=== PATIENT | male | born 2005 | race Caucasian/White ===

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

== ENCOUNTER 2024-08-29 13:31 | Outpatient (CLI) | payer BC, SELFPAY ==
[2024-08-29 11:04] LABS: Hematocrit 43.5 % (42.0-52.0); Hemoglobin 14.8 g/dL (14.0-18.0); Mean Corpuscular Hemoglobin 27.4 pg (26-34); Mean Corpuscular Volume 80.6 fl (80-100); Mean Platelet Volume 9.7 fl (7.4-10.4); Platelet Count Result 349 k/mm3 (150-375); Red Cell Distribution Width 12.3 % (11.5-14.5); White Blood Count 13.7 K/mm3 (4.5-10.0)
[2024-08-29 11:34] LABS: Alanine Aminotransferase 17 U/L (6-50); Albumin Level 4.8 g/dL (3.7-5.6); Alkaline Phosphatase 75 U/L (58-237); Anion Gap 12 mmol/L (4-12); Aspartate Amino Transferase 24 U/L (17-59); Bilirubin,Total 0.7 mg/dL (0.2-1.3); Blood Urea Nitrogen 12 mg/dL (8-21); CRP 12.1 mg/dL (<1.0); Calcium 9.7 mg/dL (8.9-10.7); Carbon Dioxide 27 mmol/L (22-30); Chloride 101 mmol/L (98-107); Estimated Glomerular Filt Rate > 60; Glucose 104 mg/dL (65-110); Sodium 140 mmol/L (134-143)
[2024-08-29 11:35] LABS: Erythrocyte Sedimentation Rate 17 mm/hr (0-20)
[2024-08-29 12:06] LABS: Thyroid Stimulating Hormone Reflex 0.582 uIU/mL (0.465-4.68)
[2024-08-29 15:25] LABS: Toxigenic C. Diff NEGATIVE (NEGATIVE)
[2024-09-03 16:43] LABS: Immunoglobulin A 206 mg/dL (47-310); TTG IGA AB <1.0 U/mL
== END 2024-08-29 13:32 | disposition home or self-care (01) ==
LOC: ANHLAB 13:32
PROVIDERS: Visit Provider Nurse Practitioner
DX: R10.9 Unspecified abdominal pain (principal); R19.7 Diarrhea, unspecified; K92.0 Hematemesis; K62.89 Other specified diseases of anus and rectum; R63.4 Abnormal weight loss; R53.83 Other fatigue; R13.10 Dysphagia, unspecified; F41.9 Anxiety disorder, unspecified
CPT/HCPCS: 36415; 80053; 82653; 82784; 83993; 84443; 85027; 85652; 86140; 86364; 87045; 87269; 87427; 87449; 87493

== ENCOUNTER 2024-09-12 03:30 | Day surgery (SDC) | payer BC, SELFPAY ==
[2024-09-05 08:42] VITALS: BMI 24.4
--- OUTSIDE RECORDS SUMMARY | 2024-09-12 03:38 | XMS_ITS | Referral Summary ---
Author Organization [facility] Address [address] [place] [address] Care Team Providers Care Packager Name Role Phone Beata Walters MD Primary Care Provider [phone] Source Comments [facility],non-owned Affiliates and Associated Physician Practices is amultiple site organization consisting of ambulatory clinics and hospital sitesin [place], [place], [place] and [place]. This disclosure is being madepursuant to the Care Everywhere program and may not contain all information available regarding this patient. Last updated 18.[facility] Allergies No known active allergies Medications * Be aware that medications may not be up to date on this document. Alwaysverify current medications with the patient. Medication Sig Dispensed Refills Start Date End Date Status dicyclomine (BENTYL) 10 MG capsule Take 1 Cap by mouth 2 times daily 60 Cap 5 04/29/2015 Active minocycline (Minocin) 100 MG capsule GIVE 1 CAPSULE BY MOUTH ONCE DAILY 03/03/2022 Active omeprazole (PriLOSEC) 40 MG capsule Take 1 (one) capsule by mouth once daily 30 capsule 2 04/22/2022 Active Active Problems Problem Noted Date Diagnosed Date Abdominal pain, generalized 04/22/2015 Frequent bowel movements 04/22/2015 Social History Tobacco Use Types Packs/Day Years Used Date Smoking Tobacco: Passive Smo ke Exposure - Never Smoker Sex and Gender Information Value Date Recorded Sex Assigned at Not on file Gender Identity Not on file Sexual Orientation Not on file Last Filed Vital Signs Vital Sign Reading Time Taken Comments Blood Pressure 104/62 04/16/2022 2:59 PM CDT Pulse 120 05/06/2011 7:23 PM CDT Temperature 38.1 ??C (100.6 ??F) 05/06/2011 7:23 PM C DT Respiratory Rate 20 05/06/2011 7:23 PM CDT Oxygen Saturation - - Inhaled Oxygen Concentration - - Weight 79.6 kg (175 lb 7.8 oz) 04/16/2022 2:59 P M CDT Height 174.1 cm (5' 8.54 ) 04/16/2022 2:59 PM CD T Body Mass Index 26.26 04/16/2022 2:59 PM CDT Body Mass Index Percentile 89.39% 04/16/2022 2:5 9 PM CDT Growth Chart: [facility] (Boys, 2-2 0 Years) Plan of Treatment Not on file Care Teams Packager Relationship Specialty Start Date End Date Beata Walters MD PCP - General 05/06/11
--- OUTSIDE RECORDS SUMMARY | 2024-09-12 03:38 | XMS_ITS | Encounter Summary ---
Author Organization [facility] Address [address] [place] [address] Care Team Providers Care Wharf Builder Name Role Phone Beata Walters MD Primary Care Provider [phone] Reason for Visit * Reason Onset Date Comments Procedure 04/21/2022 Encounter Details Date Type Department Care Team (Late st Contact Info) Description 04/21/2022 Telephone [facility] - [address] [place] [address] Sharona Rodas farm reporter Social History Tobacco Use Types Packs/Day Years Used Date Smoking Tobacco: Passive Smo ke Exposure - Never Smoker Sex and Gender Information Value Date Recorded Sex Assigned at Not on file Gender Identity Not on file Sexual Orientation Not on file COVID-19 Exposure Response Date Recorded In the last 10 days, have yo u been in contact with someone who was confirmed or suspected to have Coronavirus/COVID-19? No / Unsure 04/16/2022 2:52 PM CDT documented as of this encounter Miscellaneous Notes * Telephone Encounter - Patti Caballero - 05/12/2022 4:28 PM CDT Left two messages on both numbers listed to call office and schedule scope * Telephone Encounter - Sharona Rodas RN - 05/06/2022 10:17 AM CDT Left message with Shabbir-maw to ask if the stool sample has been obtained / delivered to the lab yet? Please call us back , as we also need to schedule Jesus for scopes * Telephone Encounter - Sharona Rodas RN - 05/05/2022 9:25 AM CDT Spoke with Father who is not sure about the stool sample-- he will call Grandmother and see if stool sample had been sent in yet. * Telephone Encounter - Patti Caballero - 04/29/2022 9:52 AM CDT Left vm for family to call back and schedule EGD w/Dr. Alfonso * Telephone Encounter - Sharona Rodas RN - 04/28/2022 8:33 AM CDT Spoke with the mother who reports no stool specimens have been turned in Yet. Jesus is proving to be difficult in obtaining stool specimens. Routing to Admin for EGD * Telephone Encounter - Sharona Rodas RN - 04/23/2022 8:09 AM CDT Called mother and let her know the Omeprazole RX was sent to their Pharmacy Mother ask about lab results-- All look generally within normal limits-- of course we need for Dr. Alfonso To see and give his interpretation of lab results. Still needs all the stool studies completed. Just found out which lab their Insurance will approve.Needs stool study Orders sent to [email or web address] in [place]. [facility] fax # [phone] Stool study orders have been faxed * Telephone Encounter - Sharona Rodas RN - 04/21/2022 1:56 PM CDT Beth Payan at # [phone] called because. 1.) Dr. Tanja Rondon Is not a recognized Physician with the [place] Medicaid System 2.) They will not approve the Nexium, But will approve Omeprazole Could we please ask for different prescription for Omeprazole? With a different doctor's name? documented in this encounter Plan of Treatment Not on file documented as of this encounter Visit Diagnoses Not on filedocumented in this encounter Care Teams Wharf Builder Relationship Specialty Start Date End Date Beata Walters MD PCP - General 05/06/11 documented as of this encounter
--- OUTSIDE RECORDS SUMMARY | 2024-09-12 03:38 | XMS_ITS | Clinical Summary ---
Author Organization [facility] Address [address] [place] [address] Care Team Providers Care Radiology Technologist Name Role Phone Beata Walters MD Primary Care Provider [phone] Source Comments [facility],non-owned Affiliates and Associated Physician Practices is amultiple site organization consisting of ambulatory clinics and hospital sitesin [place], [place], [place] and [place]. This disclosure is being madepursuant to the Care Everywhere program and may not contain all information available regarding this patient. Last updated 18.[facility] Allergies No known active allergies Medications [...] 04/16/2022 2:5 9 PM CDT Growth Chart: [facility] (Boys, 2-2 0 Years) Plan of Treatment Health Maintenance Due Date Last Done Comments HIV SCREENING 10/30/2019 HPV VACCINE (1 - Male 3-dose series) 10/30/2019 MENINGOCOCCAL (Group B) VACC INE (1 of 2 - Standard) 2020 HEPATITIS C SCREENING 10/25/2022 DTAP/TDAP/TD VACCINES (1 - Tdap) 10/30/2023 HEPATITIS B VACCINE (1 of 3 - 19+ 3-dose series) 10/30/2023 COVID-19 VACCINE (1 - 2023-2 5 season) 2024 INFLUENZA VACCINE (#1) 2024 DEPRESSION SCREENING 08/15/2024 ZOSTER VACCINE (1 of 2) 2054 HIB VACCINE Aged Out No longer eligi ble based on patient's age to complete this topic MENINGOCOCCAL VACCINE Aged Out No arthur keyon eligible based on patient's age to complete this topic PNEUMOCOCCAL VACCINE Aged Out No long er eligible based on patient's age to complete this topic Care Teams Radiology Technologist Relationship Specialty Start Date End Date Beata Walters MD PCP - General 05/06/11
--- OUTSIDE RECORDS SUMMARY | 2024-09-12 03:38 | XMS_ITS | Patient Health Summary ---
Author Organization [facility] Address [address] [place] [address] Care Team Providers Care Copy Worker Name Role Phone Beata Walters MD Primary Care Provider [phone] Note from [facility],non-owned Affiliates and Associated Physician Practices is amultiple site organization consisting of ambulatory clinics and hospital sitesin [place], [place], [place] and [place]. This disclosure is being madepursuant to the Care Everywhere program and may not contain all information available regarding this patient. Last updated 18.[facility] Allergies No known active allergies Medications * Be aware that medications may not be up to date on this document. Alwaysverify current medications with the patient. * dicyclomine (BENTYL) 10 MG capsule(Started 04/29/2015) Take 1 Cap by mouth 2 times daily 5 refills left * minocycline (Minocin) 100 MG capsule(Started 03/03/2022) GIVE 1 CAPSULE BY MOUTH ONCE DAILY * omeprazole (PriLOSEC) 40 MG capsule(Started 04/22/2022) Take 1 (one) capsule by mouth once daily 2 refills by 04/22/2023 Active Problems Problem Noted Date Diagnosed Date [...] 04/16/2022 2:5 9 PM CDT Growth Chart: [facility] (Boys, 2-2 0 Years) Procedures * DIFFERENTIAL MANUAL(Performed 04/16/2022) Performed for Abdominal pain, generalized * IGA BLOOD(Performed 04/16/2022) Performed for Abdominal pain, generalized * TISSUE TRANSGLUTAMINASE AB IGA(Performed 04/16/2022) Performed for Abdominal pain, generalized * ERYTHROCYTE SEDIMENTATION RATE(Performed 04/16/2022) Performed for Abdominal pain, generalized * C-REACTIVE PROTEIN(Performed 04/16/2022) Performed for Abdominal pain, generalized * BILIRUBIN DIRECT(Performed 04/16/2022) Performed for Abdominal pain, generalized * COMPREHENSIVE METABOLIC PANEL(Performed 04/16/2022) Performed for Abdominal pain, generalized * CBC W AUTO DIFFERENTIAL(Performed 04/16/2022) Performed for Abdominal pain, generalized * GIARDIA CRYPTOSPORIDIUM ANTIGEN PANEL(Performed 04/23/2015) Performed for Abdominal pain, generalized, Frequent bowel movements * C DIFFICILE TOXIN A+B(Performed 04/23/2015) Performed for Abdominal pain, generalized, Frequent bowel movements * TISSUE TRANSGLUTAMINASE AB IGA(Performed 04/22/2015) Performed for Abdominal pain, generalized, Frequent bowel movements * LIPASE BLOOD(Performed 04/22/2015) Performed for Abdominal pain, generalized, Frequent bowel movements * IGA BLOOD(Performed 04/22/2015) Performed for Abdominal pain, generalized, Frequent bowel movements * C-REACTIVE PROTEIN(Performed 04/22/2015) Performed for Abdominal pain, generalized, Frequent bowel movements * COMPREHENSIVE METABOLIC PANEL(Performed 04/22/2015) Performed for Abdominal pain, generalized, Frequent bowel movements * CBC W AUTO DIFFERENTIAL(Performed 04/22/2015) Performed for Abdominal pain, generalized, Frequent bowel movements * AMYLASE BLOOD(Performed 04/22/2015) Performed for Abdominal pain, generalized, Frequent bowel movements * URINALYSIS REFLEX MICROSCOPIC REFLEX CULTURE(Performed 05/06/2011) Results * TISSUE TRANSGLUTAMINASE AB IGA (04/16/2022 4:04 PM CDT) Only the most recent of2 resultswithin the time period is included. Pathologist [facility] Tissue Transglutaminase (tTG) Ab, IgA <2 0 - 3 U/mL 04/19/2022 11:53 AM CDT [facility] ([facility]) Comment: INTERPRETIVE INFORMATION: Tissue Transglutaminase (tTG) Antibody, IgA 3 U/mL or less: Negative 4-10 U/mL: Weak Positive 11 U/mL or greater: Positive Presence of the tissue transglutaminase (tTG) IgA antibody is associated with glutensensitive enteropathies such as celiac disease and dermatitis herpetiformis. tTG IgA antibody concentrations greater than 40 U/mL usually correlate with results of duodenal biopsies consistent with a diagnosis of celiac disease. For antibody concentrations greater or equal to 4 U/mL but less than or equal to 40 U/mL, additional testing for endomysial (OMER) IgA concentrations may improve the positive predictive value for disease. Performed By: [employer] [address] [place] [address] Complaint Investigator: Jac Rivera MD, PhD Blood BLOOD SPECIMEN / Unknown Lab Venipuncture / Unknown 04/16/2022 4:04 PM CDT 04/16/2022 4:20 PM CDT Ryan Alfonso MD LAB - SEROLOGY ORDER NAILA [facility] ([facility]) [address] [place] [address], [place] * CRP (INFLAMMATORY) (04/16/2022 4:04 PM CDT) Only the most recent of2 resultswithin the time period is included. Pathologist [facility] C-Reactive Protein <0.5 <=0.5 mg/dL 04/16/2022 4:53 PM CDT [facility] Blood BLOOD SPECIMEN / Unknown Lab Venipuncture / Unknown 04/16/2022 4:04 PM CDT 04/16/2022 4:20 PM CDT Ryan Alfonso MD LAB - CHEMISTRY ORDE RABJUDY [address] [address], [place] [phone] * ERYTHROCYTE SEDIMENTATION RATE (04/16/2022 4:04 PM CDT) [facility] Erythrocyte Sedimentation Rate Westergren 12 0 - 15 MM/HR 04/16/2022 5:23 PM CDT [facility] Blood BLOOD SPECIMEN / Unknown Lab Venipuncture / Unknown 04/16/2022 4:04 PM CDT 04/16/2022 4:23 PM CDT Ryan Alfonso MD LAB - HEMATOLOGY ORD ERABLES Performing Organization Address City/[facility]/ZIP Co de Phone Number [address] [address], [place] [phone] * (ABNORMAL) DIFFERENTIAL MANUAL (04/16/2022 4:04 PM CDT) [facility] WBC (corrected for NRBC) 11.0 10? 3 /uL 04/16/2022 5:22 PM CDT [facility] Total Cell Count 100 04/16/2022 5:22 PM CDT [facility] Neutrophils Absolute Manual 8.36 1.40 - 8.60 10? 3 /uL 04/16/2022 5:22 PM CDT [facility] Comment:(BANDS+SEGS) x WBC = NEUT # (ANC) Lymphocyte Absolute Manual 1.65 0.60 - 5.90 10? 3 /uL 04/16/2022 5:22 PM CDT [facility] Monocytes Absolute Manual 0.55 0.18 - 1.43 10? 3 /uL 04/16/2022 5:22 PM [facility] Eosinophils Absolute Manual 0.33 0.00 - 0.88 10? 3 /uL 04/16/2022 5:22 PM [facility] Basophil Absolute Manual 0.11 0.00 - 0.22 10? 3 /uL 04/16/2022 5:22 PM [facility] Neutrophil % Manual 76 31 - 78 % 04/16/2022 5:22 PM [facility] Lymphocyte % Manual 15 13 - 54 % 04/16/2022 5:22 PM [facility] Monocytes % Manual 5 4 - 13 % 04/16/2022 5:22 PM [facility] Eosinophils % Manual 3 0 - 8 % 04/16/2022 5:22 PM [facility] Basophils % Manual 1 0 - 100 % 04/16/2022 5:22 PM [facility] Platelet Estimate Adequate Adequate 04/16/2022 5:22 PM [facility] Ovalocytes Few(A) None 04/16/2022 5:22 PM [facility] Tear Drop Cells Few(A) None 5:22 PM [facility] Blood BLOOD SPECIMEN / Unknown Lab Venipuncture / Unknown 04/16/2022 4:04 PM CDT 04/16/2022 4:23 PM CDT Ryan Alfonso MD LAB - HEMATOLOGY ORD ERABLES Performing Organization Address City/State/[facility] Co de Phone Number [facility] [address] [place] [address], [place] [phone] * (ABNORMAL) CBC W DIFFERENTIAL (04/16/2022 4:04 PM CDT) Only the most recent of2 resultswithin the time period is included. WBC 11.0 4.5 - 11.0 10? 3 /uL 04/16/2022 4:28 PM [facility] RBC 5.16 4.50 - 5.30 10? 6 /uL 04/16/2022 4:28 PM [facility] Hemoglobin 13.8 13.0 - 16.0 g/dL 04/16/2022 4:28 PM [facility] Hematocrit 41.2 37.0 - 49.0 % 04/16/2022 4:28 PM [facility] MCV 79.8 78.0 - 98.0 fL 04/16/2022 4:28 PM [facility] MCH 26.7 25.0 - 35.0 pg 04/16/2022 4:28 PM [facility] MCHC 33.5 31.0 - 37.0 g/dL 04/16/2022 4:28 PM [facility] Platelet Count 344 100 - 400 10? 3 /uL 04/16/2022 4:28 PM [facility] RDW-SD 36.5 36.0 - 50.0 fL 04/16/2022 4:28 PM [facility] RDW-CV 12.8 11.5 - 14.0 % 04/16/2022 4:28 PM [facility] MPV 9.9(H) 6.0 - 9.5 fL 04/16/2022 4:28 PM [facility] nRBC Absolute 0.00 0 10? 3 /uL 04/16/2022 4:28 PM [facility] nRBC Auto 0.0 0 /100 WBC 04/16/2022 4:28 PM [facility] Blood BLOOD SPECIMEN / Unknown Lab Venipuncture / Unknown 04/16/2022 4:04 PM CDT 04/16/2022 4:23 PM CDT Ryan Alfonso MD LAB - HEMATOLOGY ORD ERABLES [facility] [address] [place] [address], [place] [phone] * (ABNORMAL) COMPREHENSIVE METABOLIC PANEL (04/16/2022 4:04 PM CDT) Only the most recent of2 resultswithin the time period is included. BUN 8 5 - 19 mg/dL 04/16/2022 4:49 PM [facility] Creatinine 0.87 0.71 - 1.16 mg/dL 04/16/2022 4:49 PM [facility] Sodium 140 136 - 145 mmol/L 04/16/2022 4:49 PM [facility] Potassium 3.8 3.5 - 5.1 mmol/L 04/16/2022 4:49 PM [facility] Chloride 103 98 - 107 mmol/L 04/16/2022 4:49 PM [facility] CO2 26 20 - 28 mmol/L 04/16/2022 4:49 PM [facility] Glucose 95 70 - 115 mg/dL 04/16/2022 4:49 PM [facility] Calcium 9.5 8.4 - 10.2 mg/dL 04/16/2022 4:49 PM [facility] Protein Total 7.9 6.0 - 8.3 g/dL 04/16/2022 4:49 PM [facility] Albumin 4.3 3.4 - 5.0 g/dL 04/16/2022 4:49 PM [facility] Bilirubin Total 0.4 0.3 - 1.2 mg/dL 04/16/2022 4:49 PM [facility] Alkaline Phosphatase 86(L) 100 - 390 U/L 04/16/2022 4:49 PM [facility] ALT 15 5 - 55 U/L 04/16/2022 4:49 PM [facility] AST 16 3 - 35 U/L 04/16/2022 4:49 PM [facility] Anion Gap 15 8 - 18 04/16/2022 4:49 PM [facility] BUN/Creatinine Ratio 9 7 - 23 04/16/2022 4:49 PM [facility] Osmolality Calculated 288 270 - 300 mOsm/kg 04/16/2022 4:49 PM [facility] Blood BLOOD SPECIMEN / Unknown Lab Venipuncture / Unknown 04/16/2022 4:04 PM CDT 04/16/2022 4:23 PM [facility] Ryan Alfonso MD LAB - CHEMISTRY [place] PASTRANA [facility] Organization Address City/State/ZIP Co de Phone Number [facility] [address] [place], [place] [address], [place] [phone] * BILIRUBIN DIRECT (04/16/2022 4:04 PM CDT) Pathologist [facility] Bilirubin Conjugated 0.1 0.1 - 0.5 mg/dL 04/16/2022 4:49 PM CDT [facility] Blood BLOOD SPECIMEN / Unknown Lab Venipuncture / Unknown 04/16/2022 4:04 PM CDT 04/16/2022 4:23 PM CDT Ryan Alfonso MD LAB - CHEMISTRY K[place] PASTRANA [facility] [address] [place] [address], [place] [phone] * IGA BLOOD (04/16/2022 4:04 PM CDT) Only the most recent of2 resultswithin the time period is included. [facility] IgA 145 60 - 337 mg/dL 04/16/2022 4:53 PM CDT [facility] Blood BLOOD SPECIMEN / Unknown Lab Venipuncture / Unknown 04/16/2022 4:04 PM CDT 04/16/2022 4:20 PM CDT Ryan Alfonso MD LAB - CHEMISTRY [place] PASTRANA [facility] [address] [place] [address], [place] [phone] * O + P - GIARDIA / CRYPTO ONLY (04/23/2015 4:57 PM CDT) Pathologist [facility] Comment: ??CRYPTOSPORIDIUM AG, DFA ?MICRO NUMBER: ?[id number] ??TEST STATUS: ? FINAL ??SPECIMEN SOURCE: ?? STOOL ??SPECIMEN QUALITY: ??ADEQUATE ??CRYPTOSPORIDIUM: ?? Not Detected Test Performed at: [email or web address] ??[phone] BIRDIE EUBANKS MD [facility] Comment: ??GIARDIA AG, EIA, STOOL ?MICRO NUMBER: ?[id number] ??TEST STATUS: ? FINAL ??SPECIMEN SOURCE: ?? STOOL ??SPECIMEN QUALITY: ??ADEQUATE ??RESULT 1: ?Not Detected Stool specimen (specimen) STOOL SPECIMEN / Unknown 04/23/2015 4:57 PM CDT 04/24/2015 12:14 AM CDT Jolly Parker TWIST PACKER-MEDICAL CODING SPECIALIST LAB - MICROBIOLOG Y ORDERABLES Performing Organization Address [facility] de Phone Number [facility] [address] [place] [address] * CLOSTRIDIUM DIFFICILE TOXIN (04/23/2015 4:57 PM CDT) C difficile Toxin/GDH w/Reflex to PCR [facility] Comment: ??CLOSTRIDIUM DIFFICILE TOXIN/GDH W/REFL TO PCR ?MICRO NUMBER: ?[id number] ??TEST STATUS: ? FINAL ??SPECIMEN SOURCE: ?? STOOL ??SPECIMEN QUALITY: ??ADEQUATE ??GDH ANTIGEN: ? Not Detected ??TOXIN A AND B: ? Not Detected ??COMMENT: ? No toxigenic C. difficile detected Test Performed at: [email or web address] ??[phone] BIRDIE EUBANKS MD Stool specimen (specimen) STOOL SPECIMEN / Unknown 04/23/2015 4:57 PM CDT 04/24/2015 2:58 AM CDT Jolly Mcgheecaio TWIST PACKER-MEDICAL CODING SPECIALIST LAB - MICROBIOLOG Y ORDERABLES Performing Organization Address [facility] de Phone Number [facility] [address] [place] [address] * LIPASE BLOOD (04/22/2015 2:00 PM CDT) Lipase 22 7 - 60 U/L [facility] Comment: REPORT COMMENT: FASTING:NO Test Performed at: [facility] [address] [facility] [place] ??[phone] PHYLLIS REYNOLDS DO,MPH Blood specimen (specimen) BLOOD SPECIMEN / Unknown 04/22/2015 2:00 PM CDT 04/22/2015 2:01 PM CDT Jolly Sharif Keith DICKSON-MEDICAL CODING SPECIALIST LAB - CHEMISTRY O RDERABLES Performing Organization Address [facility]/ZIP Co de Phone Number [facility] [address] [place] [address] * AMYLASE BLOOD (04/22/2015 2:00 PM CDT) Amylase 45 21 - 101 U/L [facility] Comment: Test Performed at: [facility] [address] [place], [place] ??[phone] PHYLLIS REYNOLDS DO,MPH Blood specimen (specimen) BLOOD SPECIMEN / Unknown 04/22/2015 2:00 PM CDT 04/22/2015 2:01 PM CDT Jolly Sharif Keith DICKSON-MEDICAL CODING SPECIALIST LAB - CHEMISTRY O RDERABLES Performing Organization Address [facility] Co de Phone Number [facility] [address] [place] [address] * URINALYSIS ROUTINE W/REFLEX TO CULTURE (05/06/2011 8:25 PM CDT) Color UA YELLOW [facility] Character UA CLEAR [facility] Specific [place] UA >=1.030 1.003 - 1.030 [facility] pH UA 6.5 5.0 - 8.0 [facility] Protein UA TRACE Negative [facility] Urobilinogen UA 0.2 <=1.0 EU/dl [facility] Glucose UA NEGATIVE Negative gm/dl [facility] Ketone UA 1+ Negative [facility] Blood UA NEGATIVE Negative [facility] Bilirubin UA Negative Negative [facility] Nitrite UA NEGATIVE [facility] Leukocyte UA NEGATIVE [facility] WBC UA 0-2 /HPF [facility] RBC UA 0-1 /HPF [facility] Mucus UA Large [facility] Bacteria UA Trace [facility] Urine Culture No culture performed per protocol. [facility] URINE SPECIMEN OBTAINED BY CLEAN CATCH PROCEDURE / Unknown 05/06/2011 8:25 PM CDT 05/06/2011 8:31 PM CDT Lenin Shafer MD LAB - URINALYSIS ORD ERABLES [facility] [address] [facility] [place] [address] Care Teams Copy Worker Relationship Specialty Start Date End Date Beata Walters MD PCP - General 05/06/11
--- OUTSIDE RECORDS SUMMARY | 2024-09-12 03:38 | XMS_ITS | Encounter Summary ---
Author Organization [facility] Address [address] [address] Care Team Providers Care Closet Organizer Name Role Phone Beata Walters MD Primary Care Provider [phone] Reason for Visit * Reason Onset Date Comments Procedure 04/26/2022 Encounter Details Date Type Department Care Team (Late st Contact Info) Description 04/26/2022 Telephone [facility] Pediatrics - GI [address] [place] [address]. [place] [address] Tanja Rondon MD [address] [place] [address] PEDIATRIC [place] [id number] Procedure Social History Tobacco Use Types Packs/Day Years [...] encounter Miscellaneous Notes * Telephone Encounter - Sharona Rodas RN - 05/20/2022 8:14 AM CDT Spoke with the mother who reports they still have not obtained the stool sample. 16 year old patient has refused to participate.... so far. Mother reports his symptoms are the same. Not better. Advised we cannot schedule his scopes without this fecal test-- Mother agrees. Then once scopes arescheduled he would need to participate in the prep for the scopes. Mother is aware. Mother said she would call us back once the stool sample is obtained. * Telephone Encounter - Sharona Rodas RN - 05/13/2022 8:47 AM CDT Left another voice mail trying to check on--> if stool sample had been sent. Called [employer] and they have no record of stool sample being sent * Telephone Encounter - Cristina Barker - 05/05/2022 10:20 AM CDT Admin called again to schedule EGD No answer. Admin left for a return call to scheduled [phone] * Telephone Encounter - Sharona Rodas RN - 04/29/2022 8:12 AM CDT Called and left message with the mother to inquire if Stool sample had been turned in yet? Requested Mother call us back with a progress report about the stool sample testing... * Telephone Encounter - Sharona Rodas RN - 04/26/2022 8:10 AM CDT Spoke to the mother and they still have not turned in the stool specimens, Proving to be a difficult task with this 16 year old. Mother is aware of the urgency to turn in the stool specimens... as soon as possible, in order for the doctor to order the correct scopes. * Telephone Encounter - Tanja Rondon MD - 04/26/2022 2:41 AM CDT @RN - Do we know if mom got the stool studies done for Jesus ? If the fecal calprotectin is higher with no infection in stool then we need to consider colonoscopy as well.Please update us when the stool studies are done and results are back @Admin For now, Please schedule an EGD with in 3-4 weeks. Thanks documented in this encounter Plan of Treatment Not on file documented as of this encounter Visit Diagnoses Not on filedocumented in this encounter Care Teams Closet Organizer Relationship Specialty Start Date End Date Beata Walters MD PCP - General 05/06/11 documented as of this encounter
--- OUTSIDE RECORDS SUMMARY | 2024-09-12 03:38 | XMS_ITS | Encounter Summary ---
Author Organization [facility] Address [address] [place] [address] Care Team Providers Care Radio Interference Trouble Shooter Name Role Phone Beata Walters MD Primary Care Provider [phone] Reason for Visit * Reason Onset Date Comments Results 04/28/2015 Encounter Details Date Type Department Care Team (Late st Contact Info) Description 04/28/2015 Telephone [facility] Pediatrics - GI [address] [place] [address] Jolly Parker, MACHINE TAILER-MANAGER [employer] [address] [place] [address] Results Social History Tobacco Use Types Packs/Day Years Used Date Smoking Tobacco: Never Assessed Sex and Gender Information Value Date Recorded Sex Assigned at Not on file Gender Identity Not on file Sexual Orientation Not on file documented as of this encounter Miscellaneous Notes * Telephone Encounter - Ema Jonhs RN - 04/29/2015 8:43 AM CDT Spoke to mother informing her of plan per Dr. Singh. Mother in agreement with trying Bentyl now since he is still having pain. Will also discuss with Scot tomorrow. * Telephone Encounter - Katie Singh MD - 04/28/2015 4:41 PM CDT Would try Bentyl, 10 mg BID, and send stool for calprotectin. Please, confirm with Jolly Parker that this is OK with her. * Telephone Encounter - Ema Johns RN - 04/28/2015 3:32 PM CDT Spoke to mother informing her of lab results. Mother states Jesus is taking levsin PRN but developed blurred vision and dizziness, so stopped medications. He is still having abdominal pain daily, he does NOT wake up in pain. No nausea, no vomiting. He had 2 loose stools without blood yesterday. He does feel better after aBM . Usually has a BM after eating. He is trying to eat healthy. What is the next step? * Telephone Encounter - Criselda Mckeon - 04/28/2015 3:23 PM CDT Mom calling to check on test results. documented in this encounter Plan of Treatment Not on file documented as of this encounter Visit Diagnoses Not on filedocumented in this encounter Care Teams Radio Interference Trouble Shooter Relationship Specialty Start Date End Date Beata Walters MD PCP - General 05/06/11 documented as of this encounter
[2024-09-12 07:00] VITALS: BP 111/74; PULSE 96; RESP 16; TEMP 36.2; O2SAT 99
[2024-09-12] MEDS: LACTATED RINGERS 1,000 ML 150 ML IV CONT (07:21)
--- NOTE | 2024-09-12 07:49 | P.PNAN_ITS ---
Anes - Initial Pre Proc Eval Procedure: Operation Date: 09/12/24 08:15 Proposed Procedures p Esophagogastroduodenoscopy & Colonoscopy - Davion Waldrop MD Date/Time: 09/12/24 07:49 Surgeon: Davion Waldrop MD Pre Op Diagnosis: Nausea,hematemesis,dyshagia Patient Data Age: 18 Gender: M Height: 1.78 m Weight: 77.3 kg Last Vital Signs Temp 36.2 C L 09/12/24 07:00 Pulse 96 09/12/24 07:00 Resp 16 09/12/24 07:00 BP 111/74 09/12/24 07:00 Pulse Ox 99 09/12/24 07:00 O2 Del Method Room Air 09/12/24 07:00 Allergies Allergy/AdvReac Type Severity Reaction Status Date / Time No Known Allergies Allergy Mild Verified 09/12/24 06:58 Home Medications ?Medication ?Instructions ?Recorded ?Confirmed ?Type dicyclomine 10 mg capsule 10 mg PO QID #120 caps 08/29/24 09/12/24 Rx omeprazole 40 mg capsule,delayed 40 mg PO DAILY #30 caps 08/29/24 09/12/24 Rx release ondansetron 4 mg disintegrating 4 mg PO Q8H PRN nausea and 08/29/24 09/12/24 Rx tablet vomiting #30 tabs Patient hx anesthesia problems: none Family hx anesthesia problems: other (mother slow to awaken) Results Review: All pre-operative results and documents have been reviewed as part of the pre- operative evaluation. [facility] Past Medical History Medical History Anxiety No pertinent past medical history Surgical History Surgical History No pertinent past surgical history Family History Family History Mother Family history non-contributory Social History Social History Smoking packs per day: 0.75 Smoking cigarettes per day: 15.0 Smoking status: Current every day smoker Tobacco type: e-cigarettes/vaping Alcohol intake: never Substance use: current Substance use type: marijuana Other substance usage details: THC pen Living arrangements: with family Gender identity (if verbalized by the patient): Male Spiritual care concerns: No Anes - Eval Final PreProcedure Day of Procedure 09/12/24 07:49 Patient weight: normal Heart: regular rate and rhythm Lungs: clear to auscultation Airway: Mallampati scale class II Neurological: alert and oriented Last oral intake: >/= 8 hours ASA classification: II Emergent: no Anesthetic plan: proceed Anesthesia type and monitoring: general GIVS and standard monitoring Results Review: All pre-operative results and documents have been reviewed as part of the pre- operative evaluation. Informed Consent: The patient's anesthetic plan and its attendant risks and benefits were discussed with the patient/family/POA. Questions were solicited and answers provided to the satisfaction of the patient/family/POA.
--- NOTE | 2024-09-12 08:11 | PM.IMHP ---
H&P: HPI History of Present Illness Date/Time: 09/12/24 08:11 Chief Complaint: GERD-nausea, vomiting-diarrhea Narrative: the patient has been having a wide variety of GI issues for all his life. He has recently been seen in our office for persistent diarrhea, 100% of times for the past few months, sometimes associated with minimal blood. In addition, he has constant heartburn and occasional dysphagia. His calprotectin level is 131 and CRP is elevated. He is here for EGD and colonoscopy to rule out inflammatory bowel disease and eosinophilic esophagitis. Review of Systems Review of Systems: All systems reviewed & are unremarkable except as noted in HPI and below PMFSH Past Medical History Medical History Anxiety No pertinent past medical history Surgical History Surgical History No pertinent past surgical history Family History Family History Mother Family history non-contributory Social History Social History Smoking packs per day: 0.75 Smoking cigarettes per day: 15.0 Smoking status: Current every day smoker Tobacco type: e-cigarettes/vaping Alcohol intake: never Substance use: current Substance use type: marijuana Other substance usage details: THC pen Living arrangements: with family Gender identity (if verbalized by the patient): Male Spiritual care concerns: No Meds Home Medications and Allergies Home Medications ?Medication ?Instructions ?Recorded ?Confirmed ?Type dicyclomine 10 mg capsule 10 mg PO QID #120 caps 08/29/24 09/12/24 Rx omeprazole 40 mg capsule,delayed 40 mg PO DAILY #30 caps 08/29/24 09/12/24 Rx release ondansetron 4 mg disintegrating 4 mg PO Q8H PRN nausea and 08/29/24 09/12/24 Rx tablet vomiting #30 tabs Allergies Allergy/AdvReac Type Severity Reaction Status Date / Time No Known Allergies Allergy Mild Verified 09/12/24 06:58 Vital Signs Vital Signs - 24 hr 09/12/24 07:00 Temperature 97.2 F L Pulse Rate 96 Respiratory Rate 16 Blood Pressure 111/74 Pulse Oximetry 99 Oxygen Delivery Room Air Exam Narrative: GENERAL: WELL-APPEARING, WELL-NOURISHED, AND IN NO ACUTE DISTRESS. HEAD: NORMOCEPHALIC, ATRAUMATIC. EYES: PERRLA AND EOMI. ENT: NARES CLEAR, NO RHINORRHEA OR EPISTAXIS. MUCOUS MEMBRANES MOIST. OROPHARYNX WITHOUT TONSILLAR HYPERTROPHY EXUDATE OR OTHER LESIONS. THERE IS MILD POSTERIOR PHARYNGEAL ERYTHEMA. bILATERAL TMS PEARLY HADLEY NONBULGING NECK: SUPPLE. NO ADENOPATHY OR MASSES. NO CAROTID BRUITS OR JVD CHEST: CLEAR TO AUSCULTATION. NO RESPIRATORY DISTRESS. NO WHEEZES RALES OR RHONCHI HEART: REGULAR RATE AND RHYTHM. NO MURMUR HEARD. NORMAL PERIPHERAL PULSES. ABDOMEN: SOFT, NONTENDER, NONDISTENDED, NORMAL ACTIVE BOWEL SOUNDS. EXTREMITIES: NORMAL RANGE OF MOTION. NO EDEMA. SKIN: WARM, DRY, NO RASH. NEURO: NO FOCAL DEFICITS. ALERT AND ORIENTED X3. PSYCH: NORMAL MOOD AND AFFECT. Assessment and Plan Assessment and plan (1) Diarrhea: Code(s): R19.7 - Diarrhea, unspecified Status: Acute Assessment and Plan: The patient is deemed a good candidate for the procedures. Consent signed. Will proceed. (2) Dysphagia: Code(s): R13.10 - Dysphagia, unspecified Status: Acute
--- NOTE | 2024-09-12 08:46 | SUR.OPER ---
EGD END 838 COLONOSCOPY START 846
[2024-09-12 09:02] VITALS: BP 82/32; PULSE 75; RESP 20; O2SAT 98
[2024-09-12 09:12] VITALS: BP 81/37; PULSE 69; RESP 19; O2SAT 97
[2024-09-12 09:19] VITALS: BP 85/47; PULSE 65; RESP 15; O2SAT 100
[2024-09-12 09:29] VITALS: BP 104/63; PULSE 93; RESP 20; O2SAT 100
== END 2024-09-12 09:52 | disposition home or self-care (01) ==
PROVIDERS: Referring Provider Nurse Practitioner; Visit Provider Internal Medicine Gastroenterology
PROC: 0DJ08ZZ Inspection of Upper Intestinal Tract, Via Natural or Artificial Opening Endoscopic (ICD-10-PCS; CPT 45378; principal; 2024-09-12 08:15)
DX: K21.00 Gastro-esophageal reflux disease with esophagitis, without bleeding (principal); K31.89 Other diseases of stomach and duodenum; K62.89 Other specified diseases of anus and rectum; F41.9 Anxiety disorder, unspecified; F17.290 Nicotine dependence, other tobacco product, uncomplicated; F12.90 Cannabis use, unspecified, uncomplicated
CPT/HCPCS: 43239; 45380; 88305; J2003; J2371; J2704; J7120

== ENCOUNTER 2024-09-12 09:55 | Outpatient (CLI) | payer BC, SELFPAY ==
--- NOTE | ~2024-09-12 | CT_ITS ---
EXAMINATION: CT abdomen pelvis w con DATE: 09/12/2024 10:10 INDICATION: Unspecified abdominal pain TECHNIQUE: Computed tomography (CT) of the abdomen and pelvis was performed with 100 mL Omnipaque-350 intravenous contrast. Automated exposure control and iterative reconstruction technique were employe d. The dose-length product was 387.97 mGy-cm. COMPARISON: None FINDINGS: Small region of consolidation and adjacent tree-in-bud opacity in the lingula and right middle lobe c onsistent with pneumonia and endobronchial spread of disease. Visualized inferior heart is normal. No pericardial or pleural effusion. Left gynecomastia. Liver, gallbladder, spleen, pancreas, bilateral adrenal glands and kidneys are normal. Bowels including the appendix are normal. Bladder is normal. N o free intraperitoneal gas or fluid. No pathologically enlarged abdominal or pelvic lymphadenopathy. Minimal S-shaped curvature of the lumbar and lower thoracic spine. IMPRESSION: 1. No acute intra-abdominal/pelvic process. 2. Small region of consolidation and associated tree-in-bud opacity in the right middle lobe and ling betito suspicious for pneumonia. Reviewed, dictated and finalized at location B. ETING TRA[facility]EE IMPRESSION: 1. No acute intra-abdominal/pelvic process. 2. Small region of consolidation and associated tree-in-bud opacity in the righ t middle lobe and lingula suspicious for pneumonia.
--- OUTSIDE RECORDS SUMMARY | 2024-09-12 10:47 | XMS_ITS | Referral Summary ---
Author Organization [facility] Address [address] [place] [address] Care Team Providers Care Circuit Board Assembler Name Role Phone Beata Walters MD Primary Care Provider [phone] Source Comments [facility],non-owned Affiliates and Associated Physician Practices is amultiple site organization consisting of ambulatory clinics and hospital sitesin [place], [place], [place] and [place]. This disclosure is being madepursuant to the Care Everywhere program and may not contain all information available regarding this patient. Last updated 18.[facility] Allergies No known active allergies Medications [...] 04/16/2022 2:5 9 PM CDT Growth Chart: [facility] (Boys, 2-2 0 Years) Plan of Treatment Not on file Care Teams Circuit Board Assembler Relationship Specialty Start Date End Date Beata Walters MD PCP - General 05/06/11
--- OUTSIDE RECORDS SUMMARY | 2024-09-12 10:47 | XMS_ITS | Patient Health Summary ---
Author Organization [facility] Address [address] [place] [address] Care Team Providers Care Career Placement Specialist Name Role Phone Beata Walters MD Primary Care Provider [phone] Note from [facility],non-owned Affiliates and Associated Physician Practices is amultiple site organization consisting of ambulatory clinics and hospital sitesin [place], [place], [place] and [place]. This disclosure is being madepursuant to the Care Everywhere program and may not contain all information available regarding this patient. Last updated 18.[facility] Allergies No known active allergies Medications * [...] 04/16/2022 2:5 9 PM CDT Growth Chart: [facility] (Boys, 2-2 0 Years) Procedures * DIFFERENTIAL [...] the time period is included. Pathologist [facility] Tissue Transglutaminase (tTG) Ab, IgA <2 0 - 3 U/mL 04/19/2022 11:53 AM CDT [facility] ([facility]) Comment: INTERPRETIVE INFORMATION: Tissue Transglutaminase (tTG) [...] positive predictive value for disease. Performed By: [facility] [address] [place] [address] Senior Account Manager: Jac Rivera MD, PhD Blood BLOOD SPECIMEN / Unknown Lab Venipuncture / Unknown 04/16/2022 4:04 PM CDT 04/16/2022 4:20 PM CDT Ryan Alfonso MD LAB - SEROLOGY ORDER NAILA [facility] ([facility]) [address] [place] [address], [facility] * CRP (INFLAMMATORY) (04/16/2022 4:04 PM CDT) Only the most recent of2 resultswithin the time period is included. Pathologist [facility] C-Reactive Protein <0.5 <=0.5 mg/dL 04/16/2022 4:53 PM CDT [facility] Blood BLOOD SPECIMEN / Unknown Lab Venipuncture / Unknown 04/16/2022 4:04 PM CDT 04/16/2022 4:20 PM CDT Ryan Alfonso MD LAB - CHEMISTRY ORDE RABJUDY [address] [address], [facility] [phone] * ERYTHROCYTE SEDIMENTATION RATE (04/16/2022 4:04 PM CDT) [facility] Erythrocyte Sedimentation Rate Westergren 12 0 - 15 MM/HR 04/16/2022 5:23 PM CDT [facility] Blood BLOOD SPECIMEN / Unknown Lab Venipuncture / Unknown 04/16/2022 4:04 PM CDT 04/16/2022 4:23 PM CDT Ryan Alfonso MD LAB - HEMATOLOGY ORD ERABLES Performing Organization Address City/[facility]/ZIP Co de Phone Number [address] [address], [facility] [phone] * (ABNORMAL) DIFFERENTIAL MANUAL (04/16/2022 4:04 PM CDT) [facility] WBC (corrected for NRBC) 11.0 10? 3 /uL 04/16/2022 5:22 PM CDT [facility] Total Cell Count 100 04/16/2022 5:22 PM CDT [facility] Neutrophils Absolute Manual 8.36 1.40 - 8.60 10? 3 /uL 04/16/2022 5:22 PM CDT [facility] Comment:(BANDS+SEGS) x WBC = NEUT # (ANC) Lymphocyte Absolute Manual 1.65 0.60 - 5.90 10? 3 /uL 04/16/2022 5:22 PM CDT [facility] Monocytes Absolute Manual 0.55 0.18 - 1.43 10? 3 /uL 04/16/2022 5:22 PM [facility] Eosinophils Absolute Manual 0.33 0.00 - 0.88 10? 3 /uL 04/16/2022 5:22 PM [facility] Basophil Absolute Manual 0.11 0.00 - 0.22 10? 3 /uL 04/16/2022 5:22 PM [facility] Neutrophil % Manual 76 31 - 78 % 04/16/2022 5:22 PM [facility] Lymphocyte % Manual 15 13 - 54 % 04/16/2022 5:22 PM [facility] Monocytes % Manual 5 4 - 13 % 04/16/2022 5:22 PM [facility] Eosinophils % Manual 3 0 - 8 % 04/16/2022 5:22 PM [facility] Basophils % Manual 1 0 - 100 % 04/16/2022 5:22 PM [facility] Platelet Estimate Adequate Adequate 04/16/2022 5:22 PM [facility] Ovalocytes Few(A) None 04/16/2022 5:22 PM [facility] Tear Drop Cells Few(A) None 5:22 PM [facility] Blood BLOOD SPECIMEN / Unknown Lab Venipuncture / Unknown 04/16/2022 4:04 PM CDT 04/16/2022 4:23 PM CDT Ryan Alfonso MD LAB - HEMATOLOGY ORD ERABLES Performing Organization Address City/State/[facility] Co de Phone Number [facility] [address] [place] [address], [facility] [phone] * (ABNORMAL) CBC W DIFFERENTIAL (04/16/2022 4:04 PM CDT) Only the most recent of2 resultswithin the time period is included. WBC 11.0 4.5 - 11.0 10? 3 /uL 04/16/2022 4:28 PM [facility] RBC 5.16 4.50 - 5.30 10? 6 /uL 04/16/2022 4:28 PM [facility] Hemoglobin 13.8 13.0 - 16.0 g/dL 04/16/2022 4:28 PM [facility] Hematocrit 41.2 37.0 - 49.0 % 04/16/2022 4:28 PM [facility] MCV 79.8 78.0 - 98.0 fL 04/16/2022 4:28 PM [facility] MCH 26.7 25.0 - 35.0 pg 04/16/2022 4:28 PM [facility] MCHC 33.5 31.0 - 37.0 g/dL 04/16/2022 4:28 PM [facility] Platelet Count 344 100 - 400 10? 3 /uL 04/16/2022 4:28 PM [facility] RDW-SD 36.5 36.0 - 50.0 fL 04/16/2022 4:28 PM [facility] RDW-CV 12.8 11.5 - 14.0 % 04/16/2022 4:28 PM [facility] MPV 9.9(H) 6.0 - 9.5 fL 04/16/2022 4:28 PM [facility] nRBC Absolute 0.00 0 10? 3 /uL 04/16/2022 4:28 PM [facility] nRBC Auto 0.0 0 /100 WBC 04/16/2022 4:28 PM [facility] Blood BLOOD SPECIMEN / Unknown Lab Venipuncture / Unknown 04/16/2022 4:04 PM CDT 04/16/2022 4:23 PM CDT Ryan Alfonso MD LAB - HEMATOLOGY ORD ERABLES [facility] [address] [place] [address], [facility] [phone] * (ABNORMAL) COMPREHENSIVE METABOLIC PANEL (04/16/2022 4:04 PM CDT) Only the most recent of2 resultswithin the time period is included. BUN 8 5 - 19 mg/dL 04/16/2022 4:49 PM [facility] Creatinine 0.87 0.71 - 1.16 mg/dL 04/16/2022 4:49 PM [facility] Sodium 140 136 - 145 mmol/L 04/16/2022 4:49 PM [facility] Potassium 3.8 3.5 - 5.1 mmol/L 04/16/2022 4:49 PM [facility] Chloride 103 98 - 107 mmol/L 04/16/2022 4:49 PM [facility] CO2 26 20 - 28 mmol/L 04/16/2022 4:49 PM [facility] Glucose 95 70 - 115 mg/dL 04/16/2022 4:49 PM [facility] Calcium 9.5 8.4 - 10.2 mg/dL 04/16/2022 4:49 PM [facility] Protein Total 7.9 6.0 - 8.3 g/dL 04/16/2022 4:49 PM [facility] Albumin 4.3 3.4 - 5.0 g/dL 04/16/2022 4:49 PM [facility] Bilirubin Total 0.4 0.3 - 1.2 mg/dL 04/16/2022 4:49 PM [facility] Alkaline Phosphatase 86(L) 100 - 390 U/L 04/16/2022 4:49 PM [facility] ALT 15 5 - 55 U/L 04/16/2022 4:49 PM [facility] AST 16 3 - 35 U/L 04/16/2022 4:49 PM [facility] Anion Gap 15 8 - 18 04/16/2022 4:49 PM [facility] BUN/Creatinine Ratio 9 7 - 23 04/16/2022 4:49 PM [facility] Osmolality Calculated 288 270 - 300 mOsm/kg 04/16/2022 4:49 PM [facility] Blood BLOOD SPECIMEN / Unknown Lab Venipuncture / Unknown 04/16/2022 4:04 PM CDT 04/16/2022 4:23 PM [facility] Ryan Alfonso MD LAB - CHEMISTRY KEELEY PASTRANA [facility] Organization Address City/State/ZIP Co de Phone Number [facility] [address] [place], [place] [address], [facility] [phone] * BILIRUBIN DIRECT (04/16/2022 4:04 PM CDT) Pathologist [facility] Bilirubin Conjugated 0.1 0.1 - 0.5 mg/dL 04/16/2022 4:49 PM CDT [facility] Blood BLOOD SPECIMEN / Unknown Lab Venipuncture / Unknown 04/16/2022 4:04 PM CDT 04/16/2022 4:23 PM CDT Ryan Alfonso MD LAB - CHEMISTRY KEELEY PASTRANA [facility] [address] [place] [address], [facility] [phone] * IGA BLOOD (04/16/2022 4:04 PM CDT) Only the most recent of2 resultswithin the time period is included. [facility] IgA 145 60 - 337 mg/dL 04/16/2022 4:53 PM CDT [facility] Blood BLOOD SPECIMEN / Unknown Lab Venipuncture / Unknown 04/16/2022 4:04 PM CDT 04/16/2022 4:20 PM CDT Ryan Alfonso MD LAB - CHEMISTRY KEELEY PASTRANA [facility] [address] [place] [address], [facility] [phone] * O + P - GIARDIA / CRYPTO ONLY (04/23/2015 4:57 PM CDT) Pathologist [facility] Comment: ??CRYPTOSPORIDIUM AG, DFA ?MICRO NUMBER: ?[id number] ??TEST STATUS: ? FINAL ??SPECIMEN SOURCE: ?? STOOL ??SPECIMEN QUALITY: ??ADEQUATE ??CRYPTOSPORIDIUM: ?? Not Detected Test Performed at: [facility] ??[id number] BIRDIE EUBANKS MD EIA [facility] Comment: ??GIARDIA AG, EIA, STOOL ?MICRO NUMBER: ?[id number] ??TEST STATUS: ? FINAL ??SPECIMEN SOURCE: ?? STOOL ??SPECIMEN QUALITY: ??ADEQUATE ??RESULT 1: ?Not Detected Stool specimen (specimen) STOOL SPECIMEN / Unknown 04/23/2015 4:57 PM CDT 04/24/2015 12:14 AM CDT Jolly Parker CONTINUOUS MINING MACHINE LODE MINER-GRAPHIC PRE PRESS TRADES WORKER LAB - MICROBIOLOG Y ORDERABLES Performing Organization Address [facility] de Phone Number [facility] [address] [place] [phone] * CLOSTRIDIUM DIFFICILE TOXIN (04/23/2015 4:57 PM CDT) C difficile Toxin/GDH w/Reflex to PCR [facility] Comment: ??CLOSTRIDIUM DIFFICILE TOXIN/GDH W/REFL TO PCR ?MICRO NUMBER: ?[id number] ??TEST STATUS: ? FINAL ??SPECIMEN SOURCE: ?? STOOL ??SPECIMEN QUALITY: ??ADEQUATE ??GDH ANTIGEN: ? Not Detected ??TOXIN A AND B: ? Not Detected ??COMMENT: ? No toxigenic C. difficile detected Test Performed at: [facility] ??[phone] BIRDIE EUBANKS MD Stool specimen (specimen) STOOL SPECIMEN / Unknown 04/23/2015 4:57 PM CDT 04/24/2015 2:58 AM CDT Jolly Mcgheecaio CONTINUOUS MINING MACHINE LODE MINER-GRAPHIC PRE PRESS TRADES WORKER LAB - MICROBIOLOG Y ORDERABLES Performing Organization Address [facility] de Phone Number [facility] [address] [place] [address] * LIPASE BLOOD (04/22/2015 2:00 PM CDT) Lipase 22 7 - 60 U/L [facility] Comment: REPORT COMMENT: FASTING:NO Test Performed at: [facility] [address] [place] ??[phone] PHYLLIS REYNOLDS DO,MPH Blood specimen (specimen) BLOOD SPECIMEN / Unknown 04/22/2015 2:00 PM CDT 04/22/2015 2:01 PM CDT Jolly Sharif Keith DICKSON-GRAPHIC PRE PRESS TRADES WORKER LAB - CHEMISTRY O RDERABLES Performing Organization Address [facility]/ZIP Co de Phone Number [facility] [address] [place] [address] * AMYLASE BLOOD (04/22/2015 2:00 PM CDT) Amylase 45 21 - 101 U/L [facility] Comment: Test Performed at: [facility] [address] [place], [place] ??[phone] PHYLLIS REYNOLDS DO,MPH Blood specimen (specimen) BLOOD SPECIMEN / Unknown 04/22/2015 2:00 PM CDT 04/22/2015 2:01 PM CDT Jolly Sharif Keith DICKSON-GRAPHIC PRE PRESS TRADES WORKER LAB - CHEMISTRY O RDERABLES Performing Organization Address [facility] Co de Phone Number [facility] [address] [place] [address] * URINALYSIS ROUTINE W/REFLEX TO CULTURE (05/06/2011 8:25 PM CDT) Color UA YELLOW [facility] Character UA CLEAR [facility] Specific [place] UA >=1.030 1.003 - 1.030 [facility] pH UA 6.5 5.0 - 8.0 [facility] Protein UA TRACE Negative [facility] Urobilinogen UA 0.2 <=1.0 EU/dl [facility] Glucose UA NEGATIVE Negative gm/dl [facility] Ketone UA 1+ Negative [facility] Blood UA NEGATIVE Negative [facility] Bilirubin UA Negative Negative [facility] Nitrite UA NEGATIVE [facility] Leukocyte UA NEGATIVE [facility] WBC UA 0-2 /HPF [facility] RBC UA 0-1 /HPF [facility] Mucus UA Large [facility] Bacteria UA Trace [facility] Urine Culture No culture performed per protocol. [facility] URINE SPECIMEN OBTAINED BY CLEAN CATCH PROCEDURE / Unknown 05/06/2011 8:25 PM CDT 05/06/2011 8:31 PM CDT Lenin Shafer MD LAB - URINALYSIS ORD ERABLES [facility] [address] [place] [address] Care Teams Career Placement Specialist Relationship Specialty Start Date End Date Beata Walters MD PCP - General 05/06/11
--- OUTSIDE RECORDS SUMMARY | 2024-09-12 10:47 | XMS_ITS | Encounter Summary ---
Author Organization [facility] Address [address] [place] [address] Care Team Providers Care Submarine Cable Equipment Technician Name Role Phone Beata Walters MD Primary Care Provider [phone] Reason for Visit * Reason Onset Date Comments Procedure 04/21/2022 Encounter Details Date Type Department Care Team (Late st Contact Info) Description 04/21/2022 Telephone [facility] Pediatrics - [address] [place] [address] Sharona Rodas vp compliance Social History Tobacco Use Types Packs/Day Years [...] will approve.Needs stool study Orders sent to [facility] in [place]. [facility] fax # [phone] Stool study orders have been faxed * Telephone Encounter - Sharona Rodas RN - 04/21/2022 1:56 PM CDT Beth Payan at # [phone] called because. 1.) Dr. Tanja Rondon Is [...] on filedocumented in this encounter Care Teams Submarine Cable Equipment Technician Relationship Specialty Start Date End Date Beata Walters MD PCP - General 05/06/11 documented as of this encounter
--- OUTSIDE RECORDS SUMMARY | 2024-09-12 10:47 | XMS_ITS | Clinical Summary ---
Author Organization [facility] Address [address] [place] [address] Care Team Providers Care Operations Research Manager Name Role Phone Beata Walters MD Primary Care Provider [phone] Source Comments [facility],non-owned Affiliates and Associated Physician Practices is amultiple site organization consisting of ambulatory clinics and hospital sitesin [place], [place] and [place]. This disclosure is being madepursuant to the Care Everywhere program and may not contain all information available regarding this patient. Last updated 18.[facility] Allergies No known active allergies Medications * [...] 04/16/2022 2:5 9 PM CDT Growth Chart: [facility] (Boys, 2-2 0 Years) Plan of [...] age to complete this topic Care Teams Operations Research Manager Relationship Specialty Start Date End Date Beata Walters MD PCP - General 05/06/11
--- OUTSIDE RECORDS SUMMARY | 2024-09-12 10:47 | XMS_ITS | Encounter Summary ---
Author Organization [facility] Address [address] [place] [address] Care Team Providers Care Pilot Supervisor Name Role Phone Beata Walters MD Primary Care Provider [phone] Reason for Visit * Reason Onset Date Comments Procedure 04/26/2022 Encounter Details Date Type Department Care Team (Late st Contact Info) Description 04/26/2022 Telephone [facility] Pediatrics - GI [address] [place] [address]. [place] [address] Tanja Rondon MD [address] [place] [address] PEDIATRIC [place] [id number] Procedure Social History Tobacco Use Types Packs/Day [...] if stool sample had been sent. Called [facility] [employer] and they have no record of stool sample being sent * Telephone Encounter - Cristina Barker - 05/05/2022 10:20 AM CDT Admin called again to schedule EGD No answer. Admin left for a return call to scheduled [phone] * Telephone Encounter - Sharona Rodas RN [...] on filedocumented in this encounter Care Teams Pilot Supervisor Relationship Specialty Start Date End Date Beata Walters MD PCP - General 05/06/11 documented as of this encounter
--- OUTSIDE RECORDS SUMMARY | 2024-09-12 10:47 | XMS_ITS | Encounter Summary ---
Author Organization [facility] Address [address] [place] [address] Care Team Providers Care Contact And Service Clerks Supervisor Name Role Phone Beata Walters MD Primary Care Provider [phone] Reason for Visit * Reason Onset Date Comments Results 04/28/2015 Encounter Details Date Type Department Care Team (Late st Contact Info) Description 04/28/2015 Telephone [facility] Pediatrics - GI [address] [place] [address] Jolly Parker, SOLIDWORKS DESIGNER-INSURANCE VERIFICATION CLERK [address] [place] [address] Results Social History Tobacco Use Types Packs/Day Years Used Date Smoking Tobacco: Never Assessed Sex and Gender Information Value Date Recorded Sex Assigned at Not on file Gender Identity Not on file Sexual Orientation Not on file documented as of this encounter Miscellaneous Notes * Telephone Encounter - Ema Johns RN - 04/29/2015 8:43 AM CDT Spoke [...] on filedocumented in this encounter Care Teams Contact And Service Clerks Supervisor Relationship Specialty Start Date End Date Beata Walters MD PCP - General 05/06/11 documented as of this encounter
== END 2024-09-12 09:56 | disposition home or self-care (01) ==
LOC: ANHIMG 09:56
PROVIDERS: PCP Nurse Practitioner; Visit Provider Nurse Practitioner
DX: R91.8 Other nonspecific abnormal finding of lung field (principal); K62.89 Other specified diseases of anus and rectum; R53.83 Other fatigue; F41.9 Anxiety disorder, unspecified; R19.7 Diarrhea, unspecified; K92.0 Hematemesis; R63.4 Abnormal weight loss
CPT/HCPCS: 74177; Q9967